=== PATIENT | male | born 1970 | race Caucasian/White ===

== ENCOUNTER 2017-04-16 10:27 | Emergency (ER) | payer OTHER ==
[~2017-04-16] VITALS: Ht 167.6 cm; Wt 78.6 kg
[~2017-04-16 10:27] MED LIST: ATOR10TA84 PO
[2017-04-16] MEDS ORDERED: NAPR250T2 PO (10:32)
[2017-04-16 11:13] VITALS: BP 126/80
== END 2017-04-16 12:02 | disposition home or self-care (01) ==
LOC: EMS 10:29
DX: B35.3 Tinea pedis (principal); R03.0 Elevated blood-pressure reading, without diagnosis of hypertension; E78.00 Pure hypercholesterolemia, unspecified; F17.210 Nicotine dependence, cigarettes, uncomplicated
CPT/HCPCS: 99283